=== PATIENT | female | born 1975 | race Caucasian/White ===

== ENCOUNTER 2024-09-02 05:44 | Day surgery (SDC) | payer OTHER ==
[2024-09-03 20:06] LABS: GLIADIN ANTIBODY IGA 4 units (0-19); TRANSGLUTAMINASE IGG < 2 U/mL (0-5)
== END 2024-09-02 10:50 | disposition home or self-care (01) ==
LOC: JASU-ENDO 05:44
PROVIDERS: ATTEND Internal Medicine Gastroenterology
PROC: 0DBK8ZX Excision of Ascending Colon, Via Natural or Artificial Opening Endoscopic, Diagnostic (ICD-10-PCS; principal; 2024-09-02 08:45)
DX: Z12.11 Encounter for screening for malignant neoplasm of colon (principal); D64.9 Anemia, unspecified; K64.8 Other hemorrhoids; K55.21 Angiodysplasia of colon with hemorrhage; D12.2 Benign neoplasm of ascending colon
CPT/HCPCS: 36415; 82728; 82784; 83516; 83540; 83550; 88305-TC